=== PATIENT | male | born 1960 | race Caucasian/White ===

== ENCOUNTER 2017-07-30 20:52 | Emergency (ER) | payer BC ==
[~2017-07-30] VITALS: Ht 188 cm; Wt 109.5 kg
[2017-07-30 21:27] VITALS: BP 130/60; PULSE 81; RESP 16; TEMP 98.5; O2SAT 94
[2017-07-30] MEDS ORDERED: MUPI2%T TOPICAL (22:12)
[2017-07-30] MEDS ORDERED: CEPH-460 PO (22:12)
--- NOTE | 2017-07-30 22:13 | PD ---
HPI Chief Complaint: Skin Problem Time Seen by Provider: 21:58 Travel History International Travel<30 days: No Contact w/Intl Traveler<30days: No Traveled to known affect area: No History of Present Illness HPI Patient is a 57-year-old male who presents to emergency room with complaints of possible infection after being exposed to poison prince. Patient reports that he was doing some outside housework and was possibly exposed to poison prince. He began to develop blisters to his right arm, reports that the blisters are now on his left arm. Patient reports increased redness surrounding these blisters and is concerned about possible infection. Patient reports that his tetanus is up-to-date, denies any fevers or chills. PFSH Past Medical History Medical History: Denies Significant Hx Diminished Hearing: No Immunizations Current: Yes Tetanus Vaccination: > 5 Years Influenza Vaccination: No Past Surgical History Appendectomy: Yes Tonsillectomy: Yes Social History Alcohol Use: Yes (FEW BEERS PER WEEK) Tobacco Use: No Substance Use: No Allergies-Medications (Allergen,Severity, Reaction): Coded Allergies: Sulfa (Sulfonamide Antibiotics) (Unverified Allergy, Unknown, 07/30/17) Reported Meds & Prescriptions Reported Meds & Active Scripts Active Bactroban Topical (Mupirocin) 22 Gm Cream 1 Applic TOPICAL TID Keflex (Cephalexin) 500 Mg Cap 500 Mg PO Q6H 10 Days Review of Systems General / Constitutional: No: Fever Eyes: No: Visual changes HENT: No: Headaches Cardiovascular: No: Chest Pain or Discomfort Respiratory: No: Shortness of Breath Gastrointestinal: No: Abdominal Pain Genitourinary: No: Dysuria Musculoskeletal: No: Pain Skin: Positive Rash, Positive Itching Neurologic: No: Weakness Psychiatric: No: Depression Endocrine: No: Polydipsia Hematologic/Lymphatic: No: Easy Bruising Physical Exam Narrative GENERAL: Well-nourished, well-developed patient. SKIN: Focused skin assessment warm/dry. Patient with clear linear blisters to his left arm, there is a surrounding area of cellulitis, patient does have a few blisters to his right upper extremity, there is no petechia purpura HEAD: Normocephalic. EYES: No scleral icterus. No injection or drainage. NECK: Supple, trachea midline. No JVD or lymphadenopathy. CARDIOVASCULAR: Regular rate and rhythm without murmurs, gallops, or rubs. RESPIRATORY: Breath sounds equal bilaterally. No accessory muscle use. GASTROINTESTINAL: Abdomen soft, non-tender, nondistended. MUSCULOSKELETAL: No cyanosis, or edema. BACK: Nontender without obvious deformity. No CVA tenderness. Data Data Last Documented VS Vital Signs Date Time Temp Pulse Resp B/P (MAP) Pulse Ox O2 Delivery O2 Flow Rate FiO2 07/30/17 21:47 (83) 07/30/17 21:27 98.5 81 16 94 Orders Orders Cephalexin (Keflex) (07/30/17 22:15) [facility] Medical Decision Making Medical Screen Exam Complete: Yes Emergency Medical Condition: Yes Medical Record Reviewed: Yes Interpretation(s) Vital Signs Date Time Temp Pulse Resp B/P (MAP) Pulse Ox O2 Delivery O2 Flow Rate FiO2 07/30/17 21:47 (83) 07/30/17 21:27 98.5 81 16 130/60 (83) 94 Differential Diagnosis Cellulitis, poison prince Narrative Course 57-year-old male who was exposed to poison prince and has now developed surrounding cellulitis, plan to start him on Keflex. Discussed with patient need to keep his areas covered. He will follow-up with his primary care doctor , signs and symptoms of when to return to the emergency room was discussed with patient in detail. Diagnosis Primary Impression: Cellulitis Qualified Codes: L03.90 - Cellulitis, unspecified Patient Instructions: General Instructions Additional Instructions: Please follow up with your primary care doctor in 2-3 days Return to the ER if symptoms worsen or progress Return to the ER as needed Please keep area clean and covered Med/Other Pt SpecificInfo: Prescription(s) given Scripts Mupirocin Topical (Bactroban Topical) 22 Gm Cream 1 APPLIC TOPICAL TID for Mgmt Bacterial Infection, #1 TUBE 0 Refills Prov: Maria Antonia Llanes DO 07/30/17 Cephalexin (Keflex) 500 Mg Cap 500 MG PO Q6H for Infection for 10 Days, #40 CAP 0 Refills Prov: Maria Antonia Llanes DO 07/30/17 Disposition: 01 DISCHARGE HOME Condition: Stable Maria Antonia Llanes DO Jul 30, 2017 22:13
[2017-07-30] MEDS ORDERED: CEPHALEXIN MONOHYDRATE 500 MG CAP PO ONE (22:15)
== END 2017-07-30 22:29 | disposition home or self-care (01) ==
LOC: PHEFT 20:52
DX: L03.114 Cellulitis of left upper limb (principal); L03.113 Cellulitis of right upper limb; Z88.2 Allergy status to sulfonamides
CPT/HCPCS: 99283